=== PATIENT | female | born 1935 | race Caucasian/White ===

== ENCOUNTER 2022-05-31 01:42 | Outpatient (CLI) | payer MEDICARE, MEDICAID | END 2022-05-31 01:43 | disposition critical access hospital (66) | LOC: EMS 01:42 | DX: R07.89 Other chest pain (principal); R20.0 Anesthesia of skin | CPT/HCPCS: A0425; A0427 ==

== ENCOUNTER 2022-05-31 02:14 | Emergency (ER) | payer MEDICARE, MEDICAID ==
--- NOTE | 2022-05-31 02:24 | ED Physician Documentation ---
PD HPI CHEST PAIN - Stated complaint Stated Complaint: CP - Chief complaint Chief Complaint: Cardiac - History obtained from History obtained from: Patient - History of Present Illness Timing - onset: How many hours ago (3) - Additional information Additional information: 86-year-old female with history of coronary artery disease status post stents, history of esophageal reflux presents by EMS from home for generalized, burning, nonradiating chest pain that began quickly while watching a movie since 11 PM. Feels similar to indigestion. EMS administered aspirin, nitroglycerin, and 2 mg of morphine with improvement in pain. EKG normal sinus rhythm in route, vital signs unremarkable per EMS.. Review of Systems Ten Systems: 10 systems reviewed and negative Constitutional: denies: Fever, Chills Cardiac: reports: Chest pain / pressure. denies: Palpitations, Calf pain Respiratory: denies: Dyspnea, Cough GI: denies: Abdominal Pain, Nausea, Vomiting PD PAST MEDICAL HISTORY - Past Medical History Past Medical History: Yes Cardiovascular: Coronary artery disease - Present Medications Home Medications: Ambulatory Orders Medication Instructions Recorded Confirmed Albuterol Sulf [Ventolin Hfa 1 - 2 puffs INH Q4HR PRN 05/31/22 05/31/22 Inhaler] Aspirin [Aspirin EC] 81 mg PO DAILY 05/31/22 05/31/22 Atorvastatin [Lipitor] 20 mg PO DAILY 05/31/22 05/31/22 Cholecalciferol (Vitamin D3) 125 mcg PO DAILY 05/31/22 05/31/22 [D3-5000] Ciclesonide [Alvesco] 6.1 gm IH DAILY 05/31/22 05/31/22 Clopidogrel [Plavix] 75 mg PO DAILY 05/31/22 05/31/22 Iron Ag,Ps/C/Fa6/B12/Zn/SA/Sto 1 each PO DAILY 05/31/22 05/31/22 [Niferex Tablet] Losartan [Cozaar] 50 mg PO DAILY 05/31/22 05/31/22 Metoprolol Tartrate [Lopressor] 50 mg PO DAILY 05/31/22 05/31/22 Tiotropium Br/Olodaterol HCl 4 gm IH DAILY 05/31/22 05/31/22 [Stiolto Respimat Inhal [place]] - Allergies Allergies/Adverse Reactions: Allergies Allergy/AdvReac Type Severity Reaction Status Date / Time No Known Drug Allergies Allergy Verified 05/31/22 02:31 PD ED PE NORMAL - Vitals Vital signs reviewed: Yes - General General: Alert and oriented X 3, No acute distress, Well developed/nourished - HEENT HEENT: Atraumatic, PERRL, EOMI - Neck Neck: Supple, no meningeal sign, No bony TTP, No JVD - Cardiac Cardiac: RRR, No murmur, Strong equal pulses - Respiratory Respiratory: No respiratory distress, Clear bilaterally - Abdomen Abdomen: Soft, Non tender, Non distended - Derm Derm: Normal color, Warm and dry, No rash - Extremities Extremities: No deformity, No tenderness to palpate, Normal ROM s pain, No edema - Neuro Neuro: Alert and oriented X 3, induction machine setter 2-12 intact, No motor deficit, No sensory deficit, Normal speech - Psych Psych: Normal mood, Normal affect Results - Vitals Vitals: Vital Signs - 24 hr 05/31/22 05/31/22 05/31/22 02:27 02:30 03:30 Temperature 36.3 C L Heart Rate 71 69 64 Respiratory 16 19 18 Rate Blood Pressure 156/70 H 157/73 H 115/52 L O2 Saturation 99 99 96 05/31/22 05/31/22 04:30 05:00 Temperature 36.6 C Heart Rate 61 66 Respiratory 17 17 Rate Blood Pressure 143/64 H 150/86 H O2 Saturation 95 98 Oxygen O2 Source Room air - EKG (time done) 0224 Rate: Rate (enter#) Rhythm: NSR [place]: Normal Intervals: Normal MO QRS: Normal Ischemia: Normal ST segments Computer interpretation: Agree with computer - Labs Labs: Laboratory Tests 05/31/22 05/31/22 05/31/22 02:49 02:49 02:49 WBC 4.0 L RBC 4.05 L Hgb 12.0 Hct 35.2 L MCV 86.9 MCH 29.6 MCHC 34.1 RDW 14.9 Plt Count 123 L MPV 9.9 Neut # (Auto) 3.1 Lymph # (Auto) 0.5 L Andrew # (Auto) 0.3 Eos # (Auto) 0.0 Baso # (Auto) 0.0 Absolute Nucleated RBC 0.00 Nucleated RBC % 0.0 PT 11.0 INR 1.0 APTT 28.1 Sodium 134 L Potassium 4.4 Chloride 102 Carbon Dioxide 25 Anion Gap 7.0 BUN 14 Creatinine 0.7 Estimated GFR (MDRD) 80 L Glucose 112 H Calcium 9.6 Total Bilirubin 1.3 H AST 22 ALT 14 Alkaline Phosphatase 62 Troponin I High Sens B-Natriuretic Peptide Total Protein 6.5 L Albumin 3.9 Globulin 2.6 Albumin/Globulin Ratio 1.5 Lipase 48 05/31/22 05/31/22 05/31/22 02:49 02:49 04:29 WBC RBC Hgb Hct MCV MCH MCHC RDW Plt Count MPV Neut # (Auto) Lymph # (Auto) Andrew # (Auto) Eos # (Auto) Baso # (Auto) Absolute Nucleated RBC Nucleated RBC % PT INR APTT Sodium Potassium Chloride Carbon Dioxide Anion Gap BUN Creatinine Estimated GFR (MDRD) Glucose Calcium Total Bilirubin AST ALT Alkaline Phosphatase Troponin I High Sens 6.5 6.0 B-Natriuretic Peptide 44 Total Protein Albumin Globulin Albumin/Globulin Ratio Lipase PD MEDICAL DECISION MAKING - ED course Complexity details: reviewed results, re-evaluated patient, considered differential, d/w patient ED course: Patient arriving for chest pain, asymptomatic after receiving aspirin, nitroglycerin, morphine in route by EMS. Vital signs are all within normal limits. Patient resting comfortably in ED bed. EKG is normal sinus rhythm without any ischemic findings. Lab work and imaging obtained. Initial troponin is 6.5, patient reassessed, resting comfortably, no return of chest pain. Given patient's extensive cardiac history will obtain 2-hour troponin, if no change or improved will discharge home. Patient is happy with plan. 2-hour troponin has remained stable. Patient has remained pain-free while in the emergency department. Vital signs continue to be unremarkable. I discussed the results of all labs and imaging with the patient, she is happy to know that her labs are stable and that her heart enzymes were unchanged. I counseled the importance of calling her application security developer office for an appointment as soon as possible on Thursday. Strict ED return precautions advised. Departure - Departure Disposition: 01 Home, Self Care Clinical Impression: Chest pain Condition: Stable Instructions: Angina Dc Comments: I highly recommend that you call your application security developer office first thing on Thursday morning to make a follow-up appointment. Today your high-sensitivity heart enzymes were negative twice, and your X ray was normal Discharge Date/Time: 05/31/22 05:34
[2022-05-31 02:55] LABS: BASOPHILS % (AUTO) 0.7 %; HCT - HEMATOCRIT 35.2 % (37.0-47.0); LYMPHOCYTES # (AUTO) 0.5 10^3/uL (1.5-3.5); LYMPHOCYTES % (AUTO) 12.7 %; MEAN CORPUSCULAR HEMOGLOBIN 29.6 pg (27.0-31.0); MEAN CORPUSCULAR HGB CONC 34.1 g/dL (32.0-36.0); MEAN CORPUSCULAR VOLUME 86.9 fL (81.0-99.0); MEAN PLATELET VOLUME 9.9 fL (7.9-10.8); MONOCYTES # (AUTO) 0.3 10^3/uL (0.0-1.0); MONOCYTES % (AUTO) 7.7 %; NEUTROPHILS # (AUTO) 3.1 10^3/uL (1.5-6.6); NEUTROPHILS % (AUTO) 77.7 %; PLT - PLATELET COUNT 123 10^3/uL (130-450); RED BLOOD COUNT 4.05 10^6/uL (4.20-5.40); RED CELL DISTRIBUTION WIDTH 14.9 % (12.0-15.0)
[2022-05-31 03:13] LABS: ALBUMIN 3.9 g/dL (3.2-5.5); ALBUMIN/GLOBULIN RATIO 1.5 (1.0-2.2); BILIRUBIN,TOTAL 1.3 mg/dL (0.2-1.0); CALCIUM 9.6 mg/dL (8.5-10.3); CREATININE 0.7 mg/dL (0.4-1.0); POTASSIUM 4.4 mmol/L (3.5-5.0); TOTAL PROTEIN 6.5 g/dL (6.7-8.2)
[2022-05-31 03:14] LABS: PARTIAL THROMBOPLASTIN TIME 28.1 secs (24.9-33.3)
[2022-05-31 05:22] VITALS: BP 150/86
--- NOTE | 2022-05-31 08:01 | XRAY Report ---
PROCEDURE: Chest 1 View X-Ray INDICATIONS: Chest pain TECHNIQUE: One view of the chest was acquired. COMPARISON: None FINDINGS: Surgical changes and devices: None. Lungs and pleura: Pulmonary hyperinflation present. Right apical pulmonary scarring. No focal infilt rate, nodule or pneumothorax. Mediastinum: Mediastinal contours appear normal. Heart size is normal. Atherosclerotic vascular ca lcification noted in the aortic arch. Bones and chest wall: No suspicious bony lesions. Overlying soft tissues appear unremarkable. Gene ralized decreased osseous mineralization present. IMPRESSION: Pulmonary hyperinflation and right apical pulmonary scarring. No acute cardiopulmonary findings Note: Final report is concordant with preliminary interpretation provided by [employer] Reviewed by: Junior Asencio MD on 05/31/2022 7:00 AM HERIBERTO Approved by: Junior Asencio MD on 05/31/2022 7:00 AM AKOSMANI Station ID: [id number]
== END 2022-05-31 05:34 | disposition home or self-care (01) ==
LOC: ED 02:14
DX: R07.9 Chest pain, unspecified (principal)
CPT/HCPCS: 36415; 80053; 83690; 83880; 84484; 85025; 85610; 85730; 93005; 99284